=== PATIENT | male | born 1945 | race Caucasian/White ===

== ENCOUNTER 2017-04-15 11:52 | Day surgery (SDC) | payer OTHER ==
[~2017-04-15 11:52] MED LIST: INTESTINEX1 CA1 PO; OXYC1TAB9 PO
== END 2017-04-15 17:10 | disposition home or self-care (01) ==
LOC: AMB-ENDOS 11:52
DX: Z85.048 Personal history of other malignant neoplasm of rectum, rectosigmoid junction, and anus (principal); Z93.2 Ileostomy status